=== PATIENT | male | born 1940 | race Caucasian/White ===

== ENCOUNTER 2021-05-06 11:53 | Emergency (ER) | payer MEDICARE, SELFPAY ==
[2021-05-06 11:53] VITALS: BP 142/91; PULSE 71; RESP 18; TEMP 36.6; O2SAT 95; BMI 35.4
[2021-05-06 11:56] VITALS: BP 142/91; PULSE 71; RESP 18; TEMP 36.6; O2SAT 95
--- NOTE | 2021-05-06 12:11 | EX.ED.VIS.UR ---
HPI HPI - URI History of Present Illness Chief Complaint: Shortness of Breath Detail of Chief Complaint: Cough and shortness of breath x5 to 6 days Narrative Narrative: Patient presents to the emergency department complaint of cough and shortness of breath that started 5 or 6 days ago. Patient was around some family members that subsequently tested positive for Covid last week. Patient was seen at a clinic today and had a Covid test that he will get results for 1 to 3 days from. Patient also had a chest x-ray that showed bilateral patchy infiltrates and they were referred to the emergency department. Patient's daughter brings him in and states that she has been checking his oxygen level at home and its been running from 95 at rest to 92 with ambulation. Patient coughing up some yellow phlegm at times. He is not had any fevers. He has had a change in taste and smell he believes. Patient is currently anticoagulated with Eliquis. He has not had the Covid vaccine. ROS ROS ED Constitutional Constitutional ED: Reports systems reviewed and no addt'l complaints, except as documented; Denies body ache(s), change in weight or chills Eyes Eyes: Denies acute decrease in peripheral vision, change in vision, double vision or loss of vision ENT ENT ED: Reports none; Denies ear pain, lip swelling, loss taste/smell, neck pain, otalgia or sore throat Cardiovascular Cardiovascular: Reports none; Denies abdominal pain, chest pain with activity, leg edema, lightheadedness, palpitations, rapid heart rate or syncope Respiratory/Chest Respiratory/Chest: Reports none, cough, dyspnea and sputum; Denies change in mental status, dry cough, hemoptysis, shortness of breath at rest or shortness of breath with exertion Gastrointestinal Gastrointestinal: Reports none; Denies abdominal pain, change in stool character, diarrhea, hematemesis, hematochezia, melena, rectal bleeding or vomiting Genitourinary Genitourinary ED: Reports none; Denies abdominal discomfort, anuria, dysuria, genital pain or polyuria Musculoskeletal Musculoskeletal: Reports none and myalgias; Denies arthralgias, back pain, difficulty walking, extremity pain or muscle weakness Integumentary Reports none; Denies abscess or rash Neurologic Neurologic: Reports none; Denies abnormal gait, confusion, focal weakness, frequent falls, headache(s), loss of vision, numbness, paresthesias, radicular pain, vertigo or weakness Psychiatric Psychiatric: Reports systems reviewed and no addt'l complaints, except as documented and none; Denies behavioral changes, confusion, difficulty concentrating, hallucinations, suicidal ideation, tactile hallucinations or visual hallucinations Endocrine Endocrinology: Denies none, cold intolerance, excessive sweating, fatigue or heat intolerance Hematologic/Lymphatic Hematologic/Lymphatic: Reports none; Denies anemia, easy bleeding or easy bruising Allergic/Immunologic Allergic/Immunologic ED: Denies as per HPI, none, lip swelling, mouth swelling, throat swelling, tongue swelling or hives PFSH PFSH Home Medications allopurinol 50 mg PO DAILYCM 05/02/16 [History Last Taken Unknown] atorvastatin 10 mg PO QHS 05/02/16 [History Last Taken Unknown] bumetanide 1 mg PO DAILY 05/02/16 [History Last Taken Unknown] carvedilol 6.25 mg PO BID 05/02/16 [History Last Taken 05/10/16 05:00] lisinopril 5 mg PO DAILY 05/02/16 [History Last Taken 05/10/16 05:00] pantoprazole 40 mg PO DAILY 05/02/16 [History Last Taken 05/10/16 05:00] spironolactone 12.5 mg PO UD 05/02/16 [History Last Taken Unknown] acidophilus-pectin, citrus 1 ea PO BID #10 tab 01/06/17 [Rx Last Taken Unknown] cefadroxil 500 mg PO BID #8 capsule 01/06/17 [Rx Last Taken Unknown] coenzyme [id number] [Co Q-10 (with Vit E)] 1 ea PO BID 01/06/17 [History Last Taken Unknown] levothyroxine 50 mcg PO DAILY 01/06/17 [History Last Taken Unknown] oxycodone-acetaminophen 1 - 2 tab PO 4X/DAY PRN PRN #30 tab 01/06/17 [Rx Last Taken Unknown] warfarin [Jantoven] 3.5 mg PO DAILY #0 01/06/17 [Rx Last Taken 01/03/17] Allergy/AdvReac Type Severity Reaction Status Date / Time No Known Allergies Allergy Verified 05/06/21 11:56 Social History Smoking Status: Never smoker EXAM Physical Exam Const Vital Signs: 05/06/21 11:53 05/06/21 11:56 05/06/21 12:38 Temperature 97.8 F 97.8 F Temperature Source Temporal Temporal Pulse Rate 71 71 Respiratory Rate 18 18 Respiratory Effort Normal Non-Labored Respiratory Pattern Normal Blood Pressure 142/91 H 142/91 H Blood Pressure Mean 108 108 Pulse Ox 95 95 Oxygen Delivery Method Room Air Room Air Positive well nourished and well developed General Appearance ED: well developed and NAD HEENT Reports TM's clear and moist mucous membranes normocephalic and atraumatic; Negative for trauma or tenderness Tympanic Membrane ED: Yes TM's clear Eyes PERRL and EOMs intact bilaterally General Eye ED: Negative for pale conjunctiva or scleral icterus Neck no lymphadenopathy, supple and no JVD General: Negative for tenderness Chest Wall inspection of chest normal and palpation of chest normal Chest: Negative for tenderness Resp normal respiratory effort and clear to auscultation bilaterally Effort and Inspection: Negative for respiratory distress or pain with movement Auscultation: Negative for rhonchi, wheezes or diminished lung sounds Cardio regular rate, regular rhythm, S1 normal heart sound, S2 normal heart sound and no murmurs Peripheral Pulses: pulses 2+ throughout GI normal to inspection, nondistended, normoactive bowel sounds, soft to palpation, non-tender, non-distended and no masses Back/Spine no CVA tenderness and no thoracic nor lumbar tenderness Extremity normal to inspection General Extremety ED: Negative for edema General Extremity: Negative for edema Neuro oriented x3, CN's II-XII intact bilaterally, no sensory deficits noted and gait normal Sensorium / Orientation: awake, alert, oriented to person, oriented to place and oriented to time Motor Exam: strength 5/5 throughout and strength abnormal Psych mental status grossly normal Skin no rashes or lesions noted and no wounds MDM MDM Lab Data Labs: Laboratory Results - last 24 hr 05/06/21 05/06/21 05/06/21 12:25 12:25 12:25 WBC 3.6 L RBC 4.28 L Hgb 12.3 L Hct 38.1 L MCV 89.0 MCH 28.7 MCHC 32.3 RDW Std Deviation 53.5 H RDW Coeff of Julia 16.3 H Plt Count 123 L MPV 11.0 Immature Gran % (Auto) 0.600 Neut % (Auto) 72.9 H Lymph % (Auto) 16.0 L Hickman % (Auto) 9.4 Eos % (Auto) 0.8 Baso % (Auto) 0.3 Absolute Neuts (auto) 2.7 Absolute Lymphs (auto) 0.58 L Nucleated RBC % 0 Differential Comment SCANNED Diff Path Review May foll Sodium 136 Potassium 3.9 Chloride 104 Carbon Dioxide 27.0 Anion Gap 5 BUN 17 Creatinine 1.28 Estim Creat Clear Calc 47.53 Est GFR (MDRD) Af Amer 69 Est GFR (MDRD) Non-Af 57 L BUN/Creatinine Ratio 13.3 Glucose 106 Lactic Acid 1.5 Calcium 8.2 L Discharge Plan Triage Chief Complaint: Shortness of Breath ED Provider: Maggie Sewell Dx/Rx/DC Orders Clinical Impression: COVID-19 Instructions: ED - COVID Monoclonal AB Infusion ..., Caring for Someone Who Has COVID-19 Prescriptions: No Action carvedilol 6.25 MG tablet 6.25 mg PO BID RF: 0 atorvastatin 10 MG tablet 10 mg PO QHS RF: 0 allopurinol 100 MG tablet 50 mg PO DAILYCM RF: 0 spironolactone 25 MG tablet 12.5 mg PO UD RF: 0 pantoprazole 40 MG tablet 40 mg PO DAILY RF: 0 bumetanide 1 MG tablet 1 mg PO DAILY RF: 0 lisinopril 5 MG tablet 5 mg PO DAILY RF: 0 levothyroxine 50 MCG tablet 50 mcg PO DAILY RF: 0 coenzyme [id number] [Co Q-10 (with Vit E)] 1 EACH capsule 1 ea PO BID RF: 0 oxycodone-acetaminophen 1 TABLET tablet 1 - 2 tab PO 4X/DAY PRN PRN (Reason: Pain) Qty: 30 RF: 0 acidophilus-pectin, citrus 1 EACH tablet 1 ea PO BID Qty: 10 RF: 0 cefadroxil 500 MG capsule 500 mg PO BID Qty: 8 RF: 0 warfarin [Jantoven] 4 MG tablet 3.5 mg PO DAILY Qty: 0 RF: 0 Other Ambulatory Orders: COVID Outpatient Monoclonal Antibody Referral (Routine) Timeframe: 1 Day Facility: [facility] - Location: [facility] Ordered By: Dr. Maggie Sewell Primary Care Provider: Carolina Cruz Referrals: Carolina Cruz MD [Primary Care Provider] - 5-7 Days Disposition Disposition: Home, Self Care
[2021-05-06] MEDS: 0.9% Normal Saline 1,000 ML 150 ML IV (12:35)
[2021-05-06 12:39] LABS: Absolute Lymphocyte Count 0.58 X10^3/uL (0.83-4.51); Absolute Neutrophil Count 2.7 X10^3/uL (2.0-7.7); Basophil# 0.01 X10^3/uL; Basophil% 0.3 % (0-1); Eosinophil# 0.03 X10^3/uL; Eosinophils% 0.8 % (0-5); Hematocrit 38.1 % (40-54); Hemoglobin 12.3 g/dL (13.0-16.5); Lymphocyte # 0.58 X10^3/ul (0.83-4.51); Mean Corp Hgb Conc 32.3 g/dL (32-36); Mean Corpuscular Hgb 28.7 pg (27.0-32.0); Monocyte# 0.34 X10^3/uL; Monocyte% 9.4 % (0-10); NRBC Flagged by Analyzer 0 % (0-5); Neutrophil # 2.65 X10^3/uL (2.7-7.7); Neutrophil % 72.9 % (47-70); POSITIVE DIFFERENTIAL YES; Platelet Count 123 K/mm3 (150-450); RBC Distribution Width CV 16.3 % (11.6-14.6); RBC Distribution Width SD 53.5 fl (35.1-43.9); Red Blood Count 4.28 M/mm3 (4.6-6.2); White Blood Count 3.6 K/mm3 (4.4-11.0)
[2021-05-06 12:42] LABS: Differential Indicated SCAN CRITERIA MET
[2021-05-06 12:52] LABS: Anion Gap 5 (5-15); BUN 17 mg/dL (7-18); BUN/Creat Ratio 13.3 RATIO (10-20); Calcium,Total 8.2 mg/dL (8.5-10.1); Chloride 104 mmol/L (98-107); Creatinine, Serum 1.28 mg/dL (0.70-1.30); EST Glomerular Filtration Rate 57 mL/min (>60); Est Glom Filt Rate - Afr Amer 69 mL/min (>60); Estimated Creatinine Clearance 47.53 ml/min; Glucose 106 mg/dL (74-106); Potassium 3.9 mmol/L (3.5-5.1); Sodium Level 136 mmol/L (136-145)
[2021-05-06 13:03] LABS: Lactic Acid 1.5 mmol/L (0.4-1.9)
[2021-05-06 13:09] LABS: Differential Comment SCANNED
[2021-05-06 15:10] VITALS: PULSE 78; RESP 18; O2SAT 93
[2021-05-07 13:33] LABS: Pathologist Review Reviewed
== END 2021-05-06 15:13 | disposition home or self-care (01) ==
PROVIDERS: Emergency Provider Emergency Medicine; PCP Family Medicine
DX: U07.1 COVID-19 (principal); Z79.01 Long term (current) use of anticoagulants
CPT/HCPCS: 36415; 80048; 83605; 85025; 87040; 87426; J7030

== ENCOUNTER → 2021-05-06 16:39 | Outpatient (CLI) | payer MEDICARE, SELFPAY | PROVIDERS: PCP Family Medicine; Referring Provider Physician Assistant; Visit Provider Physician Assistant | DX: U07.1 COVID-19 (principal) | CPT/HCPCS: 87635; U0005; U0003 ==

== ENCOUNTER 2021-05-06 19:45 | Outpatient (CLI) | payer MEDICARE, SELFPAY ==
[2021-05-06] MEDS: 0.9% Saline Lock 10 ML Syringe IV (20:13)
[2021-05-06 20:14] VITALS: BP 179/95; PULSE 84; RESP 16; TEMP 37.7; O2SAT 96; BMI 34.4
[2021-05-06 20:45] VITALS: BP 165/82; PULSE 82; RESP 16; TEMP 38.4; O2SAT 96
[2021-05-06] MEDS: Acetaminophen 325 MG Tablet 650 MG PO (21:06)
[2021-05-06 22:19] VITALS: BP 153/97; PULSE 86; RESP 22; TEMP 37.8; O2SAT 96
== END 2021-05-06 21:45 | disposition home or self-care (01) ==
LOC: MS3OUT 20:00 → MS3 20:01
PROVIDERS: PCP Family Medicine; Visit Provider Nurse Practitioner Adult Health
DX: Z23 Encounter for immunization (principal); U07.1 COVID-19; Z79.01 Long term (current) use of anticoagulants
CPT/HCPCS: 36415; 80048; 83605; 85025; 87040; 87426; 87635; 99283; J7030; J7050; M0243; U0005; A4216; Q0244; U0003

== ENCOUNTER 2024-04-22 07:09 | Day surgery (SDC) | payer MEDICARE, SELFPAY ==
--- NOTE | 2024-04-18 13:34 | EKG12_ITS ---
Test Reason : PREOP Blood Pressure : / mmHG Vent. Rate : 045 BPM Atrial Rate : 063 BPM P-R Int : 000 ms QRS Dur : 168 ms QT Int : 528 ms P-R-T Axes : 000 048 -23 degrees QTc Int : 456 ms Atrial fibrillation Right bundle branch block Abnormal ECG Confirmed by BELINDA BETANCOURT, SALLY ([id number]), subeditor HARINDER PÉREZ ([id number]) on 04/20/2024 8:12:34 AM Referred By: Sherif Gallegos Confirmed By:SALLY TREVINO MD
[2024-04-18 14:18] LABS: Hemoglobin 12.4 g/dL (13.0-16.5); Mean Corp Hgb Conc 31.8 g/dL (32-36); Mean Corpuscular Hgb 29.6 pg (27.0-32.0); Mean Corpuscular Volume 93.1 fL (80-94); Mean Platelet Vol. 11.8 fl (6.2-12.0); Platelet Count 113 K/mm3 (150-450); RBC Distribution Width CV 15.9 % (11.6-14.6); RBC Distribution Width SD 53.9 fl (35.1-43.9); Red Blood Count 4.19 M/mm3 (4.6-6.2); White Blood Count 7.8 K/mm3 (4.4-11.0)
[2024-04-18 14:30] LABS: Anion Gap 5 (5-15); BUN 26 mg/dL (7-18); BUN/Creat Ratio 15.8 RATIO (10-20); Calcium,Total 8.9 mg/dL (8.5-10.1); Chloride 112 mmol/L (98-107); Creatinine, Serum 1.65 mg/dL (0.70-1.30); EST Glomerular Filtration Rate 43 mL/min (>60); Est Glom Filt Rate - Afr Amer 51 mL/min (>60); Glucose 89 mg/dL (74-106); Potassium 3.7 mmol/L (3.5-5.1); Sodium Level 142 mmol/L (136-145)
[2024-04-22] VITALS (9 sets, daily range): BP systolic 128–142; BP diastolic 70–79; PULSE 57–66; RESP 14–16; TEMP 36.5–36.7; O2SAT 91–97; BMI 33.5
[2024-04-22] MEDS: Lactated Ringers 1,000 ML 15 ML IV (07:55)
--- NOTE | 2024-04-22 08:03 | PCM.PRE.AN2 ---
ASA Classification* ASA Classification ASA Classification: 3 Assessment & Plan Anesthesia* Anesthesia Assessment Anesthesia Assessment: Discussed sedation and/or anesthesia options, risks, benefits, and alternatives with patient/parents/legal guardian/POA. Questions invited. The patient/parents/legal guardian/POA seems to understand and agrees to proceed with anesthesia plan. Reviewed the physical assessment, medical history, allergy history and patient home medications list prior to surgery/procedure/anesthetic and documented any changes. Performed airway and anesthesia risk assessments. Anesthesia Type Anesthesia Type: General Anesthesia Focused Assessment* Temperature: 97.8 F Pulse Rate: 58 Blood Pressure: 142/79 Respiratory Rate: 14 Pulse Ox: 97 Airway Assessment Mouth opens: >3 cm Mallampati Score: II Focused Labs Anesthesia Preop lab: CBC WBC 7.8 K/mm3 (4.4-11.0) 04/18/24 13:47 RBC 4.19 M/mm3 (4.6-6.2) L 04/18/24 13:47 Hgb 12.4 g/dL (13.0-16.5) L 04/18/24 13:47 Hct 39.0 % (40-54) L 04/18/24 13:47 Plt Count 113 K/mm3 (150-450) L 04/18/24 13:47 CHEMISTRY Potassium 3.7 mmol/L (3.5-5.1) 04/18/24 13:47 Sodium 142 mmol/L (136-145) 04/18/24 13:47 BUN 26 mg/dL (7-18) H 04/18/24 13:47 Creatinine 1.65 mg/dL (0.70-1.30) H 04/18/24 13:47 Glucose 89 mg/dL (74-106) 04/18/24 13:47 COAG PT 22.9 SECONDS (11.7-14.9) H 01/06/17 08:40 Pre-Assessment Diagnosis/Proposed Procedure Planned Operative Procedure(s): EXCISION LESION LEFT EAR FROZEN SECTION LEFT MYRINGTOMY X2 Anesthesia History 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 When Was Last Pacemaker Check QUESTION #4 FULL TEXT: You/Your Family Experience fever (hyperthermia) with Anesthesia Last Oral Intake Last Oral intake: Last Oral Intake NPO since 18:30 04/22/24 07:40 Meds taken in AM with sips of Yes 04/22/24 07:40 water? 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 Female No 04/16/24 08:31 HX of Motion Sickness No 04/16/24 08:31 HX of N/V After Surgery No 04/16/24 08:31 Non-Smoker Yes 04/16/24 08:31 Duration of Surgery greater No 04/16/24 08:31 than 60 minutes Number of Risk Factors 1 04/16/24 08:31 PONV Score Low Risk 04/16/24 08:31 Height & Weight Height & Weight: Anesthesia: Height & Weight Height 5 ft 10 in 04/22/24 07:40 Weight: 106 kg 04/22/24 07:40 Body Mass Index (BMI) 33.5 04/22/24 07:40 Respiratory Assessment Respiratory Assessment - paddle dyeing 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 Has anyone observed you stop No 04/16/24 08:31 breathing during sleep? STOP Results Positive 04/16/24 08:31 QUESTION #5 FULL TEXT : Do you snore loudly (louder than talking or can be heard through closed doors)? 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 Specify any problems Hx of Preganancy in last 3 N/A 04/16/24 08:31 Months Nurse Filling Out Transfusion DSCHRIBER 04/16/24 08:31 & Questions: Date: 04/16/24 04/16/24 08:31 Time: 08:33 04/16/24 08:31 Patient unable to answer at this time (ie. 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: /Reproductive Hx- paddle dyeing machine operator Hx Now No 04/16/24 08:31 Gestational Age (in weeks): EDC: Hx Hx Para Hx Section SAB No 04/16/24 08:31 Active Medications Active Medications: Current Medications Generic Name Dose Route Start Last Admin Trade Name Freq PRN Reason Stop Dose Admin Lactated Ringer's 1,000 mls @ 15 mls/hr 04/22/24 07:30 04/22/24 07:55 IV 15 mls/hr .Q48H HALIE Administration PFSH Medical History Wears hearing aid Wears glasses Wears partial dentures Wears dentures Thyroid disease Ambulates with cane Arthritis History of renal disease Low iron COVID Left arm weakness Injury of head and neck Gait instability Difficulty swallowing Gastric reflux CPAP (continuous positive airway pressure) dependence Shortness of breath on exertion Non-smoker History of edema History of cardioversion History of echocardiogram Hypertension History of rheumatic fever Cardiology follow-up encounter History of atrial fibrillation Hx of dislocation of shoulder Hx of fracture of leg Home Medications ?Medication ?Instructions ?Recorded ?Last Taken ?Type allopurinol 100 mg tablet 100 mg PO BID 05/02/16 04/18/24 History bumetanide 1 mg tablet 1 mg PO DAILY 05/02/16 04/18/24 History carvedilol 6.25 mg tablet 6.25 mg PO BID 05/02/16 04/22/24 History levothyroxine 50 mcg tablet 50 mcg PO DAILY 01/06/17 04/22/24 History amlodipine 10 mg tablet 10 mg PO DAILY 04/16/24 04/22/24 History apixaban 5 mg tablet (Eliquis) 5 mg PO BID 04/16/24 04/18/24 History aspirin 81 mg capsule 81 mg PO DAILY 04/16/24 04/18/24 History cholecalciferol (vitamin D3) 50 50 mcg PO DAILY 04/16/24 04/18/24 History mcg (2,000 unit) capsule (Vitamin D3) empagliflozin 10 mg tablet 10 mg PO DAILY 04/16/24 04/18/24 History (Jardiance) lisinopril 30 mg tablet 30 mg PO DAILY 04/16/24 04/22/24 History omeprazole 20 mg capsule,delayed 20 mg PO DAILY 04/16/24 04/22/24 History release Allergy/AdvReac Type Severity Reaction Status Date / Time No Known Allergies Allergy Verified 04/22/24 07:41 Surgical History History of cardiac catheterization 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
--- NOTE | 2024-04-22 09:25 | DS.PCM_ITS ---
Providers Primary Care Physician: Dr. Carolina Cruz MD Reason For Visit: Excision, Lesion left ear, frozen s Medications at Discharge Home Medications allopurinol 100 mg tablet 100 mg PO BID 05/02/16 bumetanide 1 mg tablet 1 mg PO DAILY 05/02/16 carvedilol 6.25 mg tablet 6.25 mg PO BID 05/02/16 levothyroxine 50 mcg tablet 50 mcg PO DAILY 01/06/17 amlodipine 10 mg tablet 10 mg PO DAILY 04/16/24 apixaban 5 mg tablet (Eliquis) 5 mg PO BID 04/16/24 aspirin 81 mg capsule 81 mg PO DAILY 04/16/24 cholecalciferol (vitamin D3) 50 mcg (2,000 unit) capsule (Vitamin D3) 50 mcg PO DAILY 04/16/24 empagliflozin 10 mg tablet (Jardiance) 10 mg PO DAILY 04/16/24 lisinopril 30 mg tablet 30 mg PO DAILY 04/16/24 omeprazole 20 mg capsule,delayed release 20 mg PO DAILY 04/16/24 Weight / BMI Weight Weight: 106 kg Body Mass Index (BMI) 33.5 ABG / Lab / Microbiology Data 04/18/24 13:47 04/18/24 13:47 D/C Instructions Discharge Diet: No restrictions Discharge Activity: Return to Normal Activity Additional Activity Instructions: may shower and get the left ear wet on Tuesday 04/24 Remove Dressing in: 1 day Additional Dressing/Incision Instructions: remove dressing and discard tomorrow morning. Apply neosporin to the sutures twice a day Please Follow Up With: Sherif Gallegos MD When: end of next week Meaningful Use Info Meaningful Use Meaningful Use Diagnoses (Choose all that apply): None applicable Ischemic Stroke Statin Dosing Therapy Reference: STATIN DOSE THERAPY REFERENCE: * Patients > 75 years receive moderate or high dose statin therapy. * Patients 75 years or YOUNGER should receive HIGH intensity statin dose unless contraindicated. You will be required to document reason for non-treatment if statin daily dose does not meet guidelines. HIGH DOSE STATIN THERAPY DAILY Atorvastatin > than or = to 40 mg Rosuvastatin > than or = to 20 mg Amlodipine + Atorvastatin > than or = to 2.5/40 mg Ezetimibe + Simvastatin 10/80 mg Simvastatin 80mg Discharge Plan Admission Attending Provider: Sherif Gallegos Primary Care Provider: Carolina Cruz Instructions Print Language: Paraguayan Discharge Orders/Prescriptions Prescriptions: No Action carvedilol 6.25 MG tablet 6.25 mg PO BID allopurinol 100 MG tablet 100 mg PO BID bumetanide 1 MG tablet 1 mg PO DAILY levothyroxine 50 MCG tablet 50 mcg PO DAILY amlodipine 10 mg tablet 10 mg PO DAILY Eliquis 5 mg tablet 5 mg PO BID Jardiance 10 mg tablet 10 mg PO DAILY aspirin 81 mg capsule 81 mg PO DAILY omeprazole 20 mg capsule,delayed release(DR/EC) 20 mg PO DAILY cholecalciferol (vitamin D3) [Vitamin D3] 50 mcg (2,000 unit) capsule 50 mcg PO DAILY lisinopril 30 mg tablet 30 mg PO DAILY Referrals / Follow Up: Carolina Cruz MD [Primary Care Provider] - Disposition Disposition (needs filled in before D/C Order can be placed): Home, Self Care
--- NOTE | 2024-04-22 09:27 | PCM.OPRPT ---
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 He was placed in the supine position on the OR table. He was given sufficient general anesthesia. A speculum was inserted into the left ear. The old tube was removed. The myringotomy was performed with a knife in the anterior inferior quadrant. A t tube was placed without difficulty. cipro drops were instilled in the ear. Next the left ear was prepped and draped steriley. I excised the skin carcinoma with 7 mm margins superiorly and inferiorly through and through the cartilage with an 11 blade. The was sent for frozen section. Hemostasis was achieved with monopolar cautery. Eventually we heard that the margins were clear. the defect was 2.5 cm x 2.5 cm. I then fashioned a star flap for reconstruction. triangles were taken from the superior and inferior aspect with an 11 blade. These additional pieces were sent for permanent section. Hemostasis was achieved with monopolar cautery. The cartilage was then repaired with interrupted 4-0 vicryl. The skin was closed with interrupted 6-0 nylon. Bacitracin and a Stoddard dressing were applied. He was awoken and removed from the operating room in stable condition. Blood loss minimal, replacement none. Sponge, needle and instrument count were correct at the end of the procedure.
[2024-04-22] MEDS: Lidocaine 1% /Epi 1:100 (20ml) 20 ML Vial (09:39)
--- NOTE | 2024-04-22 10:00 | LES_PTH ---
PATIENT: RENETTA OCHOA LOC: [facility] [place] U#:[id number] AGE/SX: 83/M ROOM: RE04/22/[address]: Dr. Sherif Gallegos MD : [id number] BED: DIS: 04/22/2024 SPEC #: [id number] RECD: 04/22/24 10:20 STATUS: SHANTAL RECarlin #: [id number] LOS: 04/22/24 10:[address]: Sherif Gallegos DEPT: SURGICAL PATHOLOGY RECD BY: Kareem Jose ENTERED: 04/22/24 10:21 SP TYPE: Lesion OTHR DR: Dr. Carolina Cruz MD Tissues: A - Skin of external ear, NOS B - Skin of external ear, NOS C - Skin of external ear, NOS Procedures: Frozen Section (charge) Surgery Specimen Level IV HEADER OPERATION: Excision, lesion left ear, frozen section, local flap PRE-OP DIAGNOSIS: Acute suppurative otitis media, basal cell carcinoma of skin left ear TISSUE SUBMITTED: A- Left ear helix carcinoma *short stitch- superior, long stitch- anterior* B- Additional inferior margin, C- Additional superior margin FROZEN SECTION DIAGNOSIS A. Left ear helix lesion, excisional biopsy: Invasive squamous cell carcinoma. Completely excised. / 04/22/2024 MICROSCOPIC DIAGNOSIS A. Left ear helix lesion, excisional biopsy: Invasive well differentiated squamous cell carcinoma, completely excised. Mild actinic keratosis and solar elastosis. Sebaceous gland hyperplasia. See comment. B. Additional inferior margin: Negative for carcinoma. Mild actinic keratosis and solar elastosis. C. Additional superior margin: Negative for carcinoma. Mild actinic keratosis and solar elastosis. . 04/24/2024 COMMENT A. The tumor measures 1.4cm in greatest width and up to 0.9cm in thickness. Perineural and lymph-vascular invasion are not identified. Tumor does not invade into the underlying cartilage. MICROSCOPIC DESCRIPTION Slides are reviewed. GROSS DESCRIPTION A. Received fresh for frozen section diagnosis labeled with the patient's name is a specimen designated Left ear helix carcinoma. The specimen consists of a wedge shaped of skin (portion of ear helix) measuring 3.2 x 2.5 x 1.0cm. The specimen is oriented as follows: short stitch- superior, long stitch- anterior. This specimen is inked as follows: anterior tip- yellow, superior margin- black, inferior margin- blue. The specimen is serially sectioned and submitted entirely for frozen section diagnosis in four cassettes. Cassette 1 contains the anterior tip. Nena 04/22/2024 B. Received in fixative is one container labeled with the patient's name and designated Additional inferior margin. The specimen consists of a piece of skin with underlying tissue measuring 1.0 x 0.5 x 0.5cm. Specimen is bisected and submitted entirely in one cassette. . 04/23/2024 C. Received in fixative is one container labeled with the patient's name and designated Additional superior margin. The specimen consists of a piece of skin with underlying tissue measuring 1.0 x 0.7 x 0.5cm. Specimen is bisected and submitted entirely in one cassette. . 04/23/2024 TC:0 [facility]:[id number] ,[id number]
[2024-04-22] MEDS: Bacitracin 500 UNITS/GM PACKET (10:23)
[2024-04-22] MEDS: Ciprofloxacin 0.3% 2.5ml Bottle 2.5 DRP OPHTHALMIC (10:38)
--- NOTE | 2024-04-22 12:31 | PCM.POSTANE2 ---
Anesthesia Postop Eval I Sum Anesthesia Postop Eval I Summary Anesthesia Postop Eval I Summary: Anesthesia Postop Eval I: Assessment Summary Airway patent Spontaneous unlabored respirations Mental status nausea Vomiting Anesthesia Postop Eval I: Fluid Summary Crystalloid volume administer (ml) Colloids volume administered ( ml) Blood Product volume administered (ml) Total IV fluid infused Anesthesia Postop Eval I: Summary Notes Anesthesia Complication Anesthesia Complication Comment: Post-operative progress note Anesthesia: Postop Eval II Evaluation Mental status: Awake and Calm Pain Level: 1 nausea: No Vomiting: No Complications Anesthesia Complication: No
--- NOTE | 2024-04-22 12:47 | PCM.POST.ANE ---
Anesthesia: Postop Eval I Current Vital Signs Temperature: 98.1 F Pulse Rate: 66 Blood Pressure: 128/78 Respiratory Rate: 16 Pulse Ox: 92 Oxygen Delivery Method: Room Air Assessment Airway patent: Yes Spontaneous unlabored respirations: Yes Mental status: Awake and Calm nausea: No Vomiting: No Anesthesia Complication: No Fluid Hydration Crystalloid volume administer (ml): 1,200 Total IV fluid infused: 1,200 Progress Note Anesthesia document: Postop Eval 1 completed: Yes
== END 2024-04-22 12:03 | disposition home or self-care (01) ==
LOC: SDC 07:09 → AC 07:10
PROVIDERS: PCP Family Medicine; Referring Provider Otolaryngology; Visit Provider Otolaryngology
PROC: (CPT 69436; principal; 2024-04-22 08:30)
PROC: (CPT 69436; 2024-04-22 08:30)
DX: C44.229 Squamous cell carcinoma of skin of left ear and external auricular canal (principal); I48.91 Unspecified atrial fibrillation; H65.492 Other chronic nonsuppurative otitis media, left ear; L57.8 Other skin changes due to chronic exposure to nonionizing radiation; L57.0 Actinic keratosis; I10 Essential (primary) hypertension; I35.0 Nonrheumatic aortic (valve) stenosis; E07.9 Disorder of thyroid, unspecified; K21.9 Gastro-esophageal reflux disease without esophagitis; M19.90 Unspecified osteoarthritis, unspecified site; Z95.2 Presence of prosthetic heart valve; Z79.82 Long term (current) use of aspirin; Z79.01 Long term (current) use of anticoagulants; Z79.899 Other long term (current) drug therapy
CPT/HCPCS: 69436; 00126; 14060; 00300; 36415; 80048; 85027; 88305; 88331; 93005; J7120; J2405